=== PATIENT | female | born 1980 | race Caucasian/White ===

== ENCOUNTER 2021-07-31 13:09 | Emergency (ER) | payer MEDICAID ==
[~2021-07-31] VITALS: Ht 162.6 cm; Wt 59.0 kg
[2021-07-31 14:02] VITALS: BP 112/85
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
--- NOTE | 2021-07-31 14:54 | NUR ---
Patient discharged to home in stable condition. Written and verbal after care instructions given. Patient verbalizes understanding of instruction.
== END 2021-07-31 14:53 | disposition home or self-care (01) ==
LOC: ER 13:09
DX: M79.10 Myalgia, unspecified site (principal); R51.9 Headache, unspecified; M25.512 Pain in left shoulder; M54.6 Pain in thoracic spine; V49.49XA Driver injured in collision with other motor vehicles in traffic accident, initial encounter; Y93.89 Activity, other specified; Y92.413 State road as the place of occurrence of the external cause; Y99.8 Other external cause status

== ENCOUNTER 2022-01-08 23:25 | Emergency (ER) | payer MEDICAID ==
[~2022-01-08] VITALS: Ht 157.5 cm; Wt 54.4 kg
[2022-01-09 01:00] VITALS: BP 118/69
--- NOTE | 2022-01-09 01:00 | NUR ---
BIBS FROM HOME FOR C/O R ANKLE PAIN X 1 DAY. UNSURE OF ANY INJURIES. PT TOLERATING R/A WELL WITH NO SOB.
--- NOTE | 2022-01-09 02:57 | NUR ---
STIRRUP SPLINT APPLIED TO PT'S R ANKLE PER DR. SANDOVAL ORDERS
--- NOTE | 2022-01-09 02:58 | NUR ---
Patient discharged to home in stable condition. Written and verbal after care instructions given. Patient verbalizes understanding of instruction. PT ambulatory with a steady gait
== END 2022-01-09 03:10 | disposition home or self-care (01) ==
LOC: ER 23:27
DX: S93.401A Sprain of unspecified ligament of right ankle, initial encounter (principal); X58.XXXA Exposure to other specified factors, initial encounter; Y93.89 Activity, other specified; Y92.89 Other specified places as the place of occurrence of the external cause; Y99.8 Other external cause status
CPT/HCPCS: 73610-TC

== ENCOUNTER 2025-07-30 02:44 | Emergency (ER) | payer MEDICAID ==
[~2025-07-30] VITALS: Ht 149.9 cm; Wt 65.8 kg
[2025-07-30 04:17] LABS: PLATELET COUNT (AUTO) 311 K/uL (150-450); RED BLOOD CELL COUNT(AUTO) 4.38 MIL/uL (4.0-5.2); RED CELL DISTRIBUTION WIDTH 14.2 % (11.5-15.0); WHITE BLOOD COUNT (AUTO) 11.0 K/uL (4.3-11.0)
[2025-07-30] MEDS ORDERED: KETOROLAC TROMETHAMINE 15 MG/ML VIAL ONE (04:17)
[2025-07-30] MEDS ORDERED: ONDANSETRON HCL/PF 4 MG/2 ML VIAL ONE ×2 (04:17→09:33)
[2025-07-30 04:19] LABS: PREGNANCY TEST URINE QUAL NEGATIVE (NEGATIVE)
[2025-07-30 04:22] LABS: CALCIUM, SERUM 8.7 mg/dL (8.5-10.1); CREATININE 0.6 mg/dL (0.6-1.3); SODIUM SERUM 134 mmol/L (136-145); UREA NITROGEN, BLOOD 14 mg/dL (7-18)
[2025-07-30] MEDS: IV NS 0.9% 1,000 ML BAG IV ONE (04:24)
[2025-07-30] MEDS: ONDANSETRON HCL/PF 4 MG/2 ML VIAL IVP ONE (04:24)
[2025-07-30] MEDS: KETOROLAC TROMETHAMINE 15 MG/ML VIAL IV ONE (04:24)
[2025-07-30 04:28] LABS: ASPARTATE AMINOTRANSFERASE 67 U/L (15-37); TOTAL PROTEIN, SERUM 7.4 g/dL (6.4-8.2)
[2025-07-30 05:20] LABS: ALCOHOL, BLOOD < 3 mg/dL (0-10)
[2025-07-30] MEDS: PIPERACILLIN /TAZOBACTAM 4.5 G in IV D5W 50 ML IV ONE (06:49)
[2025-07-30 07:07] VITALS: TEMP 98.3
[2025-07-30] MEDS ORDERED: MORPHINE SULFATE INJ 4 MG/ML DISP.SYRIN ONE (09:33)
[2025-07-30] MEDS: ONDANSETRON HCL/PF 4 MG/2 ML VIAL IV ONE (09:37)
[2025-07-30] MEDS: MORPHINE SULFATE INJ 2 MG/ML DISP.SYRIN IV ONE (09:37)
[2025-07-30 09:59] VITALS: BP 104/65; O2SAT 99
== END 2025-07-30 10:01 | disposition short-term general hospital (02) ==
LOC: ER 02:49
DX: K85.90 Acute pancreatitis without necrosis or infection, unspecified (principal); K80.20 Calculus of gallbladder without cholecystitis without obstruction
CPT/HCPCS: 99285; 96365; 96361; 96375; 96376; 76705; 85025; 80048; 87040 ×2; 87086; 83690; 80076; 84703; 84478; 36415; 80320; J2270; J2405 ×2; J2543; J7060; J7030; J1885; G0480